=== PATIENT | female | born 1955 | race Caucasian/White ===

== ENCOUNTER 2019-08-03 11:53 | Emergency (ER) | payer MEDICARE, OTHER ==
--- NOTE | 2019-08-03 12:01 | ED Physician Documentation ---
General Adult - HISTORIAN Historian: patient - HPI Stated Complaint: left hand middle finger injury Chief Complaint: Hand Injury Onset: hours (1) Timing: still present Severity: moderate Further Comments: yes (She reports she was trying to fall and she did extend her hand and her finger was hurt in the fall. She orginally could not move her middle finger "up" and she states now her movement is improved but she has some signficant bruises) - ROS CONST: no problems MS/SKIN/LYMPH: none NEURO/PSYCH: denies: headache - PAST HX Past History: hypertension Immunizations: UTD Allergies/Adverse Reactions: Allergies Allergy/AdvReac Type Severity Reaction Status Date / Time No Known Allergies Allergy Verified 08/03/19 12:36 - SOCIAL HX Smoking History: non-smoker Alcohol Use: none Drug Use: none - FAMILY HX Family History: No - REVIEWED ASSESSMENTS Nursing Assessment Reviewed: Yes Vitals Reviewed: Yes General Adult Physical Exam - PHYSICAL EXAM GENERAL APPEARANCE: no distress EENT: eye inspection normal NECK: normal inspection RESPIRATORY: no resp distress, chest non-tender, breath sounds normal CVS: reg rate & rhythm, heart sounds normal ABDOMEN: soft, normal bowel sounds SKIN: warm/dry, normal color EXTREMITIES: non-tender, other (left hand middle finger with bruise mild swelling FROM pulses + cap refill + ) NEURO: oriented X3 Discharge Clincal Impression: Left hand pain Referrals: Phillip Hutchins MD [Primary Care Provider] - 2 Days Comments: 1. OTC meds as directed as needed for pain 2. Ice area as needed for comfort 3. Follow up with PCP if any concerns 2-4 days 4. Return to ER for any increased concerns Condition: Stable Disposition: 01 HOME, SELF-CARE Decision to Admit: NO Date of Decison to Admit: 08/03/19 Decision Time: 13:45
[2019-08-03 12:36] VITALS: BP 161/84
--- NOTE | 2019-08-03 13:28 | Diagnostic Imaging Report ---
PATIENT MR#: [id number] PATIENT PATIENT NAME: JACOBO CRAFT DATE OF : 1955 REFERRING PHYSICIAN: Roxi Ivy EXAM DATE: 08/03/2019 ACCESSION NUMBER: [id number] EXAM DESCRIPTION: HAND 3 VIEWS OR MORE Indication: Left hand pain status post fall a few days ago. Technique: 3 views of the left hand were obtained. Comparison: None available. Findings: There is moderate joint space narrowing at the thumb carpometacarpal joint. There is mild radiocarpal joint space narrowing. There is no fracture or dislocation of the left hand. There are no osseous erosion s. Minimal scattered joint space narrowing seen in the fingers. There are no radiopaque foreign bodies or soft tissue swelling. Impression: 1. No fracture or dislocation of the left hand. 2. Moderate osteoarthritis at the thumb carpometacarpal joint. Read by: Dr. Ziggy Covarrubias Transcribed by: Ziggy Covarrubias Transcribed Date: 08/03/2019 1:27:48 PM Electronically signed by: Dr. Ziggy Covarrubias Date signed: 08/03/2019 1:27:50 PM
== END 2019-08-03 13:44 | disposition home or self-care (01) ==
LOC: ED 11:53
DX: M79.642 Pain in left hand (principal)
CPT/HCPCS: 73130; 99282